=== PATIENT | male | born 1980 | race African-American/Black ===

== ENCOUNTER 2021-01-24 00:19 | Emergency (ER) | payer OTHER ==
[~2021-01-24] VITALS: Ht 180.3 cm; Wt 123.4 kg
[2021-01-24] MEDS ORDERED: SODIUM CHLORIDE 0.9% 1000ML 1,000 ML IV STA (00:21)
[2021-01-24] MEDS ORDERED: FAMOTIDINE 20 MG/2 ML VIAL IV STA (00:29)
[2021-01-24] MEDS ORDERED: ONDANSETRON HCL INJ 2MG/ML 2ML 2 MG/ML VIAL IV STA (00:29)
[2021-01-24 00:48] LABS: HEMATOCRIT 44.9 % (38.2-49.6); HEMOGLOBIN 15.6 g/dL (14.0-18.0)
[2021-01-24] MEDS ORDERED: Morphine 4mg Syringe 4 MG/ML INJ IV STA (00:48)
[2021-01-24 00:49] LABS: BASOPHILS % 0.5 % (0.0-1.0); EOSINOPHILS # (AUTO) 0.2 (0.0-0.4); EOSINOPHILS % 3.5 % (0.0-6.0); LYMPHOCYTES % 34.6 % (18.0-39.1); MEAN CORPUSCULAR HEMOGLOBIN 31.2 pg (28-32); MEAN CORPUSCULAR HGB CONC 34.7 g/dL (31-35); MEAN CORPUSCULAR VOLUME 89.8 fL (81-99); MONOCYTES # (AUTO) 0.5 (0.2-0.8); MONOCYTES % 9.3 % (4.4-11.3); NEUTROPHILS % 51.8 % (38.7-80.0); PLATELET COUNT 219 x10e3/uL (140-360); RED CELL DISTRIBUTION WIDTH 12.5 % (11.7-14.4)
[2021-01-24] MEDS ORDERED: ONDANSETRON HCL INJ 2MG/ML 2ML 2 MG/ML VIAL ONE ×2 (00:50→01:01)
[2021-01-24] MEDS ORDERED: FAMOTIDINE 20 MG/2 ML VIAL IV ONE (00:51)
[2021-01-24] MEDS ORDERED: Morphine 2mg Syringe 2 MG/ML SYR ONE (01:01)
[2021-01-24 01:04] LABS: ALBUMIN 4.2 g/dL (3.5-5.0); ALBUMIN/GLOBULIN RATIO 1.2 (0.8-2.0); ANION GAP 13.6 mmol/L (8-16); CALCIUM 10.2 mg/dL (8.4-10.2); CREATININE, SERUM 1.25 mg/dL (0.72-1.25); POTASSIUM 3.6 mmol/L (3.5-5.1)
[2021-01-24] MEDS ORDERED: IOPAMIDOL 370 MG/ML 200 ML INFUS..BTL INJ ONE (01:19)
[2021-01-24] MEDS ORDERED: SODIUM CHLORIDE 0.9% 50ML 50 ML ONE (01:19)
[2021-01-24] MEDS ORDERED: PROMETHAZINE 25MG/ NS 50ML (IV) IV STA (01:52)
[2021-01-24] MEDS ORDERED: PROMETHAZINE 25MG/SOD CHL 0.9% 50 ML IV ONE (02:05)
[2021-01-24 03:23] VITALS: BP 130/70
[2021-01-24] MEDS ORDERED: PANTOPRAZOLE SO40 MG PO (19:35)
[2021-01-24] MEDS ORDERED: ONDANSETRON ODT4 MG PO (19:35)
[2021-01-24] MEDS ORDERED: CARAFATE1 GM/10 ML PO (19:35)
== END 2021-01-24 03:15 | disposition home or self-care (01) ==
LOC: ER 00:23
DX: R10.33 Periumbilical pain (principal); R11.0 Nausea; R51.9 Headache, unspecified
CPT/HCPCS: 36415; 74177; 80053; 83690; 85025; 99284; J2270; J2405; J2550; J7030; Q9967